=== PATIENT | male | born 1970 | race Caucasian/White ===

== ENCOUNTER 2020-04-27 00:02 | Emergency (ER) | payer MEDICARE ==
[~2020-04-27] VITALS: Ht 182.9 cm; Wt 81.6 kg
[2020-04-27 01:28] VITALS: BP 141/88
[2020-04-27] MEDS ORDERED: cefTRIAXone SOD 1,000 MG VL IM ONE (01:30)
[2020-04-27] MEDS ORDERED: KETOROLAC TROMETH 60MG/2ML VIAL IM ONE (01:30)
== END 2020-04-27 02:43 | disposition home or self-care (01) ==
LOC: ER 00:04
DX: L03.116 Cellulitis of left lower limb (principal)
CPT/HCPCS: 96372; 99284; J0696; J1885

== ENCOUNTER 2020-12-21 00:23 | Emergency (ER) | payer BC, MEDICARE ==
[~2020-12-21] VITALS: Ht 182.9 cm; Wt 81.6 kg
[2020-12-21 01:43] LABS: Basophils # (auto) 0.1 10 ^3/uL (0-0.2); Basophils % (auto) 0.7 % (0.0-2.0); Eosinophils # (auto) 0.1 10 ^3/uL (0-0.8); Eosinophils % (auto) 1.5 % (0.0-7.0); Lymphocytes # (auto) 1.9 10 ^3/uL (0.4-5.4); Mean Corpuscular Hgb Conc. 34.8 g/dL (32.0-36.0); Monocytes # (auto) 0.7 10 ^3/uL (0-1.3); Monocytes % (auto) 7.5 % (0.0-12.0); Neutrophils # (auto) 5.9 10 ^3/uL (1.6-8.6); Neutrophils % (auto) 68.3 % (37.0-80.0); Nucleated Red Blood Cells % 0.1 %; Red Cell Distribution Width 13.4 % (11.8-14.3); White Blood Cell 8.7 10^3/uL (4.4-10.8)
[2020-12-21 02:18] LABS: Albumin 4.1 g/dL (3.4-5.0); BUN/Creatinine Ratio 23.9; Calcium 8.7 mg/dL (8.5-10.1); Magnesium 2.5 mg/dL (1.6-2.6); Potassium 3.6 mmol/L (3.5-5.1)
[2020-12-21 02:21] LABS: Bilirubin, Total 0.6 mg/dL (0.2-1.0); Total Protein 7.8 g/dL (6.4-8.2)
[2020-12-21 05:00] VITALS: BP 149/93
[2020-12-21 06:34] LABS: Urine Bacteria NONE SEEN /hpf (None Seen); Urine Blood TRACE /uL (Negative); Urine Specific Gravity 1.015 (1.001-1.035); Urine WBC 1 /hpf (0 - 3)
[2020-12-21 06:41] LABS: Amphetamine Screen, Urine POSITIVE (NEGATIVE); Barbiturate Scree,Urine NEGATIVE (NEGATIVE); Benzodiazephine Screen, Urine NEGATIVE (NEGATIVE); Cannabinoid Screen, Urine NEGATIVE (NEGATIVE); Cocaine Screen, Urine NEGATIVE (NEGATIVE); Opiate Scree,Urine NEGATIVE (NEGATIVE); Phencyclidine Screen, Urine NEGATIVE (NEGATIVE)
== END 2020-12-21 05:33 | disposition home or self-care (01) ==
LOC: EDBD 00:23 → ER 00:33
DX: S06.0X1A Concussion with loss of consciousness of 30 minutes or less, initial encounter (principal); S00.03XA Contusion of scalp, initial encounter; K70.30 Alcoholic cirrhosis of liver without ascites; F17.210 Nicotine dependence, cigarettes, uncomplicated; X58.XXXA Exposure to other specified factors, initial encounter; Y93.89 Activity, other specified; Y92.89 Other specified places as the place of occurrence of the external cause; Y99.8 Other external cause status
CPT/HCPCS: 36415; 70450; 72125; 80053; 80307; 80320; 81001; 82140; 83735; 85025; 93005